=== PATIENT | male | born 1945 | race Caucasian/White ===

== ENCOUNTER 2018-04-18 15:12 | Inpatient (IN) | payer OTHER ==
[~2018-04-18] VITALS: Ht 177.8 cm; Wt 83.9 kg
[2018-04-18 15:12] VITALS: BP_SYST 119
[2018-04-18] MEDS ORDERED: NACL 0.9% 1,000 ML IV ONE (15:47)
[2018-04-18 17:04] LABS: HEMATOCRIT 43.6 % (36-54); HEMOGLOBIN 15.1 g/dL (14.0-18.0); MEAN CORPUSCULAR HEMOGLOBIN 33 pg (27-31); MEAN CORPUSCULAR HGB CONC 35 % (32-36); MEAN CORPUSCULAR VOLUME 97 fL (79.0-98.0); PLATELET COUNT (AUTO) 344 K/uL (130-430); RED BLOOD CELL COUNT(AUTO) 4.51 MIL/uL (4.2-6.2); RED CELL DISTRIBUTION WIDTH 12.7 % (9.0-15.0); WHITE BLOOD COUNT (AUTO) 15.1 K/uL (4.8-10.8)
[2018-04-18 17:07] LABS: ANION GAP 9 (5-15); CALCIUM 10.1 mg/dL (8.4-11.0); CHLORIDE 94 mmol/L (98-107); GLUCOSE 116 mg/dL (70-99); SODIUM SERUM 134 mmol/L (136-145); UREA NITROGEN, BLOOD 33 mg/dL (8-21)
[2018-04-18 17:13] LABS: ALANINE AMINOTRANSFERASE 15 U/L (12-78); ALBUMIN 3.8 g/dL (3.4-4.8); ASPARTATE AMINOTRANSFERASE 17 U/L (10-37); LIPASE 224 U/L (73-393); TOTAL BILIRUBIN 0.6 mg/dL (0.0-1.0)
[2018-04-18] MEDS ORDERED: DOCU-144 PO (17:13)
[2018-04-18] MEDS ORDERED: ACET325T53 PO (17:13)
[2018-04-18] MEDS ORDERED: CAND8TAB PO (17:13)
[2018-04-18] MEDS ORDERED: CLOP300T2 PO (17:13)
[2018-04-18] MEDS ORDERED: NOR10 PO (17:13)
[2018-04-18] MEDS ORDERED: SENN8.6T19 PO (17:13)
[2018-04-18] MEDS ORDERED: FOLI-43 PO (17:13)
[2018-04-18] MEDS ORDERED: LACT1TAB21 PO (17:13)
[2018-04-18] MEDS ORDERED: NAPR-1174 PO (17:13)
[2018-04-18] MEDS ORDERED: TOPXL100 PO (17:13)
[2018-04-18] MEDS ORDERED: OXYC-580 PO (17:13)
[2018-04-18] MEDS ORDERED: THIA100T13 PO (17:13)
[2018-04-18 17:16] LABS: ATYPICAL LYMPHOCYTES % 0 % (0-0); BAND % (MANUAL) 1 % (0-6); BASOPHILS % (MANUAL) 0 % (0-2); EOSINOPHILS % (MANUAL) 0 % (0-7); LYMPHOCYTES % (MANUAL) 15 % (20-46); MONOCYTES % (MANUAL) 3 % (0-11)
[2018-04-18 18:14] LABS: BILIRUBIN,URINE 1+ (NEGATIVE); BLOOD, URINE NEGATIVE (NEGATIVE); CLARITY/URINE SL CLOUDY (CLEAR); COLOR,URINE YELLOW (YELLOW); GLUCOSE,URINE TRACE (NEGATIVE); KETONES,URINE 1+ (NEGATIVE); LEUKOCYTE ESTERASE ,URINE TRACE (NEGATIVE); NITRITE, URINE POSITIVE (NEGATIVE); PH,URINE 6.5 (5.0-8.0); PROTEIN URINE 1+ (NEGATIVE)
[2018-04-18 18:20] LABS: BACTERIA,URINE MODERATE /HPF (None Seen); RBC,URINE 0-3 /HPF (0-3); URINE AMORPHOUS URATE 1+ /HPF (None Seen)
[2018-04-18 18:41] VITALS: BP_SYST 125
[2018-04-18] MEDS ORDERED: LevALBUTEROL HCL 1.25 MG/0.5 ML *CONC.* VIAL.NEB (XOPENEX CONC.) INH PRN (19:45)
[2018-04-18] MEDS ORDERED: ONDANSETRON HCL 4 MG/2 ML VIAL IVP PRN (19:45)
[2018-04-18] MEDS ORDERED: ACETAMINOPHEN 325 MG TABLET PO PRN (19:45)
[2018-04-18 20:15] VITALS: BP_SYST 137
[2018-04-18] MEDS: cefTRIAXone 1 GM in D5W 50 ML IV SCH (20:28)
[2018-04-18] MEDS: AZITHROMYCIN 500 MG in NS 250 ML IV SCH (20:28)
[2018-04-18] MEDS: D5/0.45 NS 1,000 ML IV SCH (20:29)
[2018-04-18] MEDS: SENNOSIDES 8.6 MG TABLET PO SCH (20:29)
[2018-04-18] MEDS: LevALBUTEROL HCL 1.25 MG/0.5 ML *CONC.* VIAL.NEB (XOPENEX CONC.) INH SCH (23:06)
[2018-04-19 00:34] VITALS: BP_SYST 99
[2018-04-19] MEDS: D5/0.45 NS 1,000 ML IV SCH ×3 (04:38→21:35)
[2018-04-19 06:36] LABS: BASOPHILS % (AUTO) 0.2 % (0.0-2.0); EOSINOPHILS # (AUTO) 0.2 K/uL (0.0-0.4); EOSINOPHILS % (AUTO) 1.4 % (0.0-4.0); HEMATOCRIT 37.2 % (36-54); HEMOGLOBIN 12.7 g/dL (14.0-18.0); LYMPHOCYTES # (AUTO) 2.5 K/uL (1.0-5.5); LYMPHOCYTES % (AUTO) 19.8 % (20.5-51.5); MEAN CORPUSCULAR HEMOGLOBIN 33 pg (27-31); MEAN CORPUSCULAR HGB CONC 34 % (32-36); MEAN CORPUSCULAR VOLUME 97 fL (79.0-98.0); MONOCYTES # (AUTO) 0.7 K/uL (0.0-1.0); MONOCYTES % (AUTO) 5.9 % (1.7-9.3); NEUTROPHILS # (AUTO) 9.2 K/uL (1.8-7.7); NEUTROPHILS % (AUTO) 72.7 % (40.0-70.0); PLATELET COUNT (AUTO) 309 K/uL (130-430); RED BLOOD CELL COUNT(AUTO) 3.85 MIL/uL (4.2-6.2); RED CELL DISTRIBUTION WIDTH 12.8 % (9.0-15.0); WHITE BLOOD COUNT (AUTO) 12.6 K/uL (4.8-10.8)
[2018-04-19 06:48] LABS: ANION GAP 3 (5-15); CALCIUM 9.4 mg/dL (8.4-11.0); CHLORIDE 96 mmol/L (98-107); CREATININE 1.94 mg/dL (0.55-1.30); GLUCOSE 101 mg/dL (70-99); SODIUM SERUM 133 mmol/L (136-145); UREA NITROGEN, BLOOD 35 mg/dL (8-21)
[2018-04-19] MEDS: LevALBUTEROL HCL 1.25 MG/0.5 ML *CONC.* VIAL.NEB (XOPENEX CONC.) INH SCH ×3 (07:22→23:27)
[2018-04-19 08:03] VITALS: BP_SYST 108
[2018-04-19] MEDS: oxyCODONE HCL 5 MG TABLET PO PRN ×2 (08:38→18:10)
[2018-04-19] MEDS: FOLIC ACID 1 MG TABLET PO SCH (08:39)
[2018-04-19] MEDS: THIAMINE HCL 100 MG TABLET PO SCH (08:39)
[2018-04-19] MEDS: DOCUSATE SODIUM 100 MG CAPSULE PO SCH (08:39)
[2018-04-19] MEDS: CLOPIDOGREL BISULFATE 75 MG TABLET PO SCH (08:39)
[2018-04-19] MEDS: amLODIPine BESYLATE 10 MG TABLET PO SCH (08:41)
[2018-04-19] MEDS: LOSARTAN POTASSIUM 50 MG TABLET (COZAAR) PO SCH (08:41)
[2018-04-19] MEDS: METOPROLOL SUCCINATE 50 MG TAB.SR.24H (TOPROL XL) PO SCH (08:42)
[2018-04-19] MEDS: KETOROLAC TROMETHAMINE 15 MG VIAL IVP PRN (11:20)
[2018-04-19 12:15] VITALS: BP_SYST 92
[2018-04-19 16:25] VITALS: BP_SYST 94
[2018-04-19 20:48] VITALS: BP_SYST 110
[2018-04-19] MEDS: cefTRIAXone 1 GM in D5W 50 ML IV SCH (21:34)
[2018-04-19] MEDS: AZITHROMYCIN 500 MG in NS 250 ML IV SCH (21:34)
[2018-04-19] MEDS: SENNOSIDES 8.6 MG TABLET PO SCH (21:35)
[2018-04-19 23:50] LABS: URINE SODIUM, RANDOM 47 mmol/L (40-220)
[2018-04-20] MEDS: oxyCODONE HCL 5 MG TABLET PO PRN ×4 (00:11→23:07)
[2018-04-20 00:44] VITALS: BP_SYST 101
[2018-04-20 06:39] LABS: ALANINE AMINOTRANSFERASE 13 U/L (12-78); ALBUMIN 2.9 g/dL (3.4-4.8); ANION GAP 4 (5-15); ASPARTATE AMINOTRANSFERASE 16 U/L (10-37); CHLORIDE 95 mmol/L (98-107); CREATININE 1.57 mg/dL (0.55-1.30); GLUCOSE 104 mg/dL (70-99); SODIUM SERUM 131 mmol/L (136-145); TOTAL BILIRUBIN 0.3 mg/dL (0.0-1.0); UREA NITROGEN, BLOOD 28 mg/dL (8-21)
[2018-04-20 06:40] LABS: BASOPHILS # (AUTO) 0.1 K/uL (0.0-0.2); BASOPHILS % (AUTO) 0.8 % (0.0-2.0); EOSINOPHILS # (AUTO) 0.2 K/uL (0.0-0.4); EOSINOPHILS % (AUTO) 2.8 % (0.0-4.0); HEMATOCRIT 33.3 % (36-54); LYMPHOCYTES # (AUTO) 1.9 K/uL (1.0-5.5); LYMPHOCYTES % (AUTO) 25.1 % (20.5-51.5); MEAN CORPUSCULAR HEMOGLOBIN 35 pg (27-31); MEAN CORPUSCULAR HGB CONC 36 % (32-36); MEAN CORPUSCULAR VOLUME 96 fL (79.0-98.0); MONOCYTES # (AUTO) 0.4 K/uL (0.0-1.0); MONOCYTES % (AUTO) 5.8 % (1.7-9.3); NEUTROPHILS % (AUTO) 65.5 % (40.0-70.0); PLATELET COUNT (AUTO) 239 K/uL (130-430); RED BLOOD CELL COUNT(AUTO) 3.46 MIL/uL (4.2-6.2); RED CELL DISTRIBUTION WIDTH 12.8 % (9.0-15.0); WHITE BLOOD COUNT (AUTO) 7.6 K/uL (4.8-10.8)
[2018-04-20] MEDS: LevALBUTEROL HCL 1.25 MG/0.5 ML *CONC.* VIAL.NEB (XOPENEX CONC.) INH SCH ×3 (07:17→23:00)
[2018-04-20 08:00] VITALS: BP_SYST 120
[2018-04-20] MEDS: FOLIC ACID 1 MG TABLET PO SCH (08:29)
[2018-04-20] MEDS: THIAMINE HCL 100 MG TABLET PO SCH (08:29)
[2018-04-20] MEDS: CLOPIDOGREL BISULFATE 75 MG TABLET PO SCH (08:29)
[2018-04-20] MEDS: LOSARTAN POTASSIUM 50 MG TABLET (COZAAR) PO SCH (08:30)
[2018-04-20] MEDS: METOPROLOL SUCCINATE 50 MG TAB.SR.24H (TOPROL XL) PO SCH (08:31)
[2018-04-20] MEDS: amLODIPine BESYLATE 10 MG TABLET PO SCH (08:31)
[2018-04-20] MEDS: DOCUSATE SODIUM 100 MG CAPSULE PO SCH (08:31)
[2018-04-20] MEDS: KETOROLAC TROMETHAMINE 15 MG VIAL IVP PRN ×2 (11:04→20:11)
[2018-04-20] MEDS: D5/0.45 NS 1,000 ML IV SCH (11:04)
[2018-04-20 11:16] LABS: % FREE PSA 13.1 % (.); FREE PSA 0.42 ng/mL; PROSTATE SPECIFIC AG TOTAL 3.2 ng/mL (0.0-4.0)
[2018-04-20 13:13] VITALS: BP_SYST 116
[2018-04-20 16:22] VITALS: BP_SYST 103
[2018-04-20] MEDS: D5NS 1,000 ML IV SCH (16:29)
[2018-04-20 20:00] VITALS: BP_SYST 101
[2018-04-20] MEDS: SENNOSIDES 8.6 MG TABLET PO SCH (20:10)
[2018-04-20] MEDS: cefTRIAXone 1 GM in D5W 50 ML IV SCH (20:10)
[2018-04-20] MEDS: AZITHROMYCIN 500 MG in NS 250 ML IV SCH (21:03)
[2018-04-21 00:20] VITALS: BP_SYST 98
[2018-04-21] MEDS: D5NS 1,000 ML IV SCH ×2 (02:33→12:31)
[2018-04-21 06:13] LABS: ANION GAP 4 (5-15); C-REACTIVE PROTEIN QUANT 1.6 mg/dL (0-0.5); CALCIUM 8.7 mg/dL (8.4-11.0); CHLORIDE 101 mmol/L (98-107); CREATININE 1.11 mg/dL (0.55-1.30); GLUCOSE 100 mg/dL (70-99); POTASSIUM 4.5 mmol/L (3.5-5.1); SODIUM SERUM 134 mmol/L (136-145); UREA NITROGEN, BLOOD 17 mg/dL (8-21)
[2018-04-21 07:17] VITALS: BP_SYST 118
[2018-04-21] MEDS: LevALBUTEROL HCL 1.25 MG/0.5 ML *CONC.* VIAL.NEB (XOPENEX CONC.) INH SCH ×3 (07:17→23:00)
[2018-04-21 08:00] VITALS: BP_SYST 118
[2018-04-21] MEDS: oxyCODONE HCL 5 MG TABLET PO PRN ×3 (08:09→18:42)
[2018-04-21] MEDS: DOCUSATE SODIUM 100 MG CAPSULE PO SCH (08:09)
[2018-04-21] MEDS: METOPROLOL SUCCINATE 50 MG TAB.SR.24H (TOPROL XL) PO SCH (08:09)
[2018-04-21] MEDS: amLODIPine BESYLATE 10 MG TABLET PO SCH (08:10)
[2018-04-21] MEDS: THIAMINE HCL 100 MG TABLET PO SCH (08:10)
[2018-04-21] MEDS: FOLIC ACID 1 MG TABLET PO SCH (08:10)
[2018-04-21] MEDS: CLOPIDOGREL BISULFATE 75 MG TABLET PO SCH (08:10)
[2018-04-21] MEDS: LOSARTAN POTASSIUM 50 MG TABLET (COZAAR) PO SCH (08:27)
[2018-04-21 12:15] VITALS: BP_SYST 104
[2018-04-21] MEDS: KETOROLAC TROMETHAMINE 15 MG VIAL IVP PRN (15:17)
[2018-04-21 16:49] VITALS: BP_SYST 130
[2018-04-21] MEDS: cefTRIAXone 1 GM in D5W 50 ML IV SCH (19:52)
[2018-04-21 20:00] VITALS: BP_SYST 123
[2018-04-21] MEDS: AZITHROMYCIN 500 MG in NS 250 ML IV SCH (20:34)
[2018-04-21] MEDS: SENNOSIDES 8.6 MG TABLET PO SCH (20:34)
[2018-04-22] MEDS: D5NS 1,000 ML IV SCH (00:12)
[2018-04-22 01:20] VITALS: BP_SYST 123
[2018-04-22] MEDS: oxyCODONE HCL 5 MG TABLET PO PRN ×3 (01:34→22:21)
[2018-04-22 08:00] VITALS: BP_SYST 129
[2018-04-22] MEDS: LevALBUTEROL HCL 1.25 MG/0.5 ML *CONC.* VIAL.NEB (XOPENEX CONC.) INH SCH ×3 (08:03→23:41)
[2018-04-22] MEDS: KETOROLAC TROMETHAMINE 15 MG VIAL IVP PRN ×2 (08:08→15:56)
[2018-04-22] MEDS: THIAMINE HCL 100 MG TABLET PO SCH (08:10)
[2018-04-22] MEDS: amLODIPine BESYLATE 10 MG TABLET PO SCH (08:11)
[2018-04-22] MEDS: DOCUSATE SODIUM 100 MG CAPSULE PO SCH (08:11)
[2018-04-22] MEDS: FOLIC ACID 1 MG TABLET PO SCH (08:12)
[2018-04-22] MEDS: CLOPIDOGREL BISULFATE 75 MG TABLET PO SCH (08:12)
[2018-04-22] MEDS: METOPROLOL SUCCINATE 50 MG TAB.SR.24H (TOPROL XL) PO SCH (08:12)
[2018-04-22 12:25] VITALS: BP_SYST 132
[2018-04-22] MEDS ORDERED: IOHEXOL 100 ML IV ONE (13:27)
[2018-04-22 16:25] VITALS: BP_SYST 111
[2018-04-22] MEDS: cefTRIAXone 1 GM in D5W 50 ML IV SCH (19:30)
[2018-04-22 20:00] VITALS: BP_SYST 135
[2018-04-22] MEDS: AZITHROMYCIN 500 MG in NS 250 ML IV SCH (20:19)
[2018-04-22] MEDS: SENNOSIDES 8.6 MG TABLET PO SCH (20:24)
[2018-04-23 00:32] VITALS: BP_SYST 147
[2018-04-23] MEDS: KETOROLAC TROMETHAMINE 15 MG VIAL IVP PRN ×2 (04:43→13:43)
[2018-04-23 06:47] LABS: BASOPHILS % (AUTO) 0.6 % (0.0-2.0); EOSINOPHILS # (AUTO) 0.2 K/uL (0.0-0.4); EOSINOPHILS % (AUTO) 2.8 % (0.0-4.0); HEMATOCRIT 34.3 % (36-54); LYMPHOCYTES # (AUTO) 1.3 K/uL (1.0-5.5); LYMPHOCYTES % (AUTO) 18.8 % (20.5-51.5); MEAN CORPUSCULAR HEMOGLOBIN 34 pg (27-31); MEAN CORPUSCULAR HGB CONC 35 % (32-36); MEAN CORPUSCULAR VOLUME 97 fL (79.0-98.0); MONOCYTES # (AUTO) 0.5 K/uL (0.0-1.0); MONOCYTES % (AUTO) 6.8 % (1.7-9.3); NEUTROPHILS # (AUTO) 4.9 K/uL (1.8-7.7); PLATELET COUNT (AUTO) 262 K/uL (130-430); RED BLOOD CELL COUNT(AUTO) 3.55 MIL/uL (4.2-6.2); RED CELL DISTRIBUTION WIDTH 12.3 % (9.0-15.0); WHITE BLOOD COUNT (AUTO) 6.9 K/uL (4.8-10.8)
[2018-04-23 07:24] LABS: ALANINE AMINOTRANSFERASE 13 U/L (12-78); ALBUMIN 2.7 g/dL (3.4-4.8); ANION GAP 8 (5-15); ASPARTATE AMINOTRANSFERASE 14 U/L (10-37); CHLORIDE 102 mmol/L (98-107); CREATININE 0.91 mg/dL (0.55-1.30); GLUCOSE 86 mg/dL (70-99); POTASSIUM 4.4 mmol/L (3.5-5.1); SODIUM SERUM 137 mmol/L (136-145); TOTAL BILIRUBIN 0.4 mg/dL (0.0-1.0); UREA NITROGEN, BLOOD 7 mg/dL (8-21)
[2018-04-23] MEDS: LevALBUTEROL HCL 1.25 MG/0.5 ML *CONC.* VIAL.NEB (XOPENEX CONC.) INH SCH ×3 (07:50→23:09)
[2018-04-23 08:00] VITALS: BP_SYST 129
[2018-04-23] MEDS: oxyCODONE HCL 5 MG TABLET PO PRN ×2 (09:42→20:05)
[2018-04-23] MEDS ORDERED: GADOPENTETATE DIMEGLUMINE 15 ML VIAL IV ONE (10:09)
[2018-04-23] MEDS: DOCUSATE SODIUM 100 MG CAPSULE PO SCH (11:54)
[2018-04-23] MEDS: FOLIC ACID 1 MG TABLET PO SCH (11:54)
[2018-04-23] MEDS: CLOPIDOGREL BISULFATE 75 MG TABLET PO SCH (11:54)
[2018-04-23] MEDS: THIAMINE HCL 100 MG TABLET PO SCH (11:54)
[2018-04-23] MEDS: amLODIPine BESYLATE 10 MG TABLET PO SCH (11:54)
[2018-04-23] MEDS: METOPROLOL SUCCINATE 50 MG TAB.SR.24H (TOPROL XL) PO SCH (11:55)
[2018-04-23] MEDS: BISACODYL 10 MG/SUPPOSITORY RC PRN (11:55)
[2018-04-23 11:57] VITALS: BP_SYST 126
[2018-04-23 12:25] VITALS: BP_SYST 129
[2018-04-23 16:25] VITALS: BP_SYST 134
[2018-04-23] MEDS: cefTRIAXone 1 GM in D5W 50 ML IV SCH (19:23)
[2018-04-23 20:00] VITALS: BP_SYST 125
[2018-04-23] MEDS: SENNOSIDES 8.6 MG TABLET PO SCH (20:04)
[2018-04-24 00:30] VITALS: BP_SYST 129
[2018-04-24] MEDS: oxyCODONE HCL 5 MG TABLET PO PRN ×3 (03:29→17:26)
[2018-04-24] MEDS: LevALBUTEROL HCL 1.25 MG/0.5 ML *CONC.* VIAL.NEB (XOPENEX CONC.) INH SCH ×3 (07:09→22:45)
[2018-04-24 07:10] VITALS: BP_SYST 129
[2018-04-24 08:00] VITALS: BP_SYST 147
[2018-04-24] MEDS: FOLIC ACID 1 MG TABLET PO SCH (08:50)
[2018-04-24] MEDS: THIAMINE HCL 100 MG TABLET PO SCH (08:50)
[2018-04-24] MEDS: amLODIPine BESYLATE 10 MG TABLET PO SCH (08:51)
[2018-04-24] MEDS: METOPROLOL SUCCINATE 50 MG TAB.SR.24H (TOPROL XL) PO SCH (08:51)
[2018-04-24] MEDS: CLOPIDOGREL BISULFATE 75 MG TABLET PO SCH (08:51)
[2018-04-24] MEDS: DOCUSATE SODIUM 100 MG CAPSULE PO SCH (08:51)
[2018-04-24 10:06] LABS: PROTHROMBIN TIME 10.4 SECS (9.5-12.5)
[2018-04-24] MEDS ORDERED: LIDOCAINE 1%, 20 ML MDV 0 ML ONE (10:44)
[2018-04-24] MEDS ORDERED: LORazepam 2 MG/ML VIAL IM ONE (10:45)
[2018-04-24 12:27] VITALS: BP_SYST 126
[2018-04-24] MEDS ORDERED: MORPHINE 4 MG/ML INJ. SYRINGE IVP ONE (14:45)
[2018-04-24 16:25] VITALS: BP_SYST 122
[2018-04-24] MEDS: cefTRIAXone 1 GM in D5W 50 ML IV SCH (21:19)
[2018-04-24] MEDS: SENNOSIDES 8.6 MG TABLET PO SCH (21:19)
[2018-04-25 00:52] VITALS: BP_SYST 115
[2018-04-25] MEDS: oxyCODONE HCL 5 MG TABLET PO PRN ×4 (06:04→20:09)
[2018-04-25] MEDS: LevALBUTEROL HCL 1.25 MG/0.5 ML *CONC.* VIAL.NEB (XOPENEX CONC.) INH SCH ×2 (07:39→15:36)
[2018-04-25] MEDS ORDERED: MORPHINE 4 MG/ML INJ. SYRINGE IVP ONE (08:00)
[2018-04-25 08:15] VITALS: BP_SYST 127
[2018-04-25] MEDS ORDERED: LIDOCAINE 1%, 20 ML MDV 20 ML ONE (08:42)
[2018-04-25] MEDS: FOLIC ACID 1 MG TABLET PO SCH (09:52)
[2018-04-25] MEDS: DOCUSATE SODIUM 100 MG CAPSULE PO SCH (09:52)
[2018-04-25] MEDS: THIAMINE HCL 100 MG TABLET PO SCH (09:52)
[2018-04-25] MEDS: METOPROLOL SUCCINATE 50 MG TAB.SR.24H (TOPROL XL) PO SCH (09:53)
[2018-04-25] MEDS: CLOPIDOGREL BISULFATE 75 MG TABLET PO SCH (09:53)
[2018-04-25] MEDS: amLODIPine BESYLATE 10 MG TABLET PO SCH (09:53)
[2018-04-25 14:28] VITALS: BP_SYST 119
[2018-04-25 16:02] VITALS: BP_SYST 116
[2018-04-25 20:00] VITALS: BP_SYST 110
[2018-04-25] MEDS: SENNOSIDES 8.6 MG TABLET PO SCH (20:06)
[2018-04-26] MEDS: oxyCODONE HCL 5 MG TABLET PO PRN ×5 (00:27→18:52)
[2018-04-26] MEDS: LevALBUTEROL HCL 1.25 MG/0.5 ML *CONC.* VIAL.NEB (XOPENEX CONC.) INH SCH ×3 (00:40→15:00)
[2018-04-26 00:41] VITALS: BP_SYST 108
[2018-04-26 05:31] VITALS: BP_SYST 119
[2018-04-26 08:30] VITALS: BP_SYST 103
[2018-04-26] MEDS: DOCUSATE SODIUM 100 MG CAPSULE PO SCH (09:21)
[2018-04-26] MEDS: FOLIC ACID 1 MG TABLET PO SCH (09:21)
[2018-04-26] MEDS: THIAMINE HCL 100 MG TABLET PO SCH (09:21)
[2018-04-26] MEDS: amLODIPine BESYLATE 10 MG TABLET PO SCH (09:22)
[2018-04-26] MEDS: CLOPIDOGREL BISULFATE 75 MG TABLET PO SCH (09:22)
[2018-04-26] MEDS: METOPROLOL SUCCINATE 50 MG TAB.SR.24H (TOPROL XL) PO SCH (09:23)
[2018-04-26 11:31] VITALS: BP_SYST 97
[2018-04-26] MEDS: BISACODYL 10 MG/SUPPOSITORY RC PRN (14:36)
[2018-04-26 15:58] VITALS: BP_SYST 103
[2018-04-26 19:53] VITALS: BP_SYST 107
[2018-05-28] MEDS ORDERED: DEC4 PO (17:34)
[2018-05-28] MEDS ORDERED: NA P133E41 RC (17:34)
[2018-05-28] MEDS ORDERED: MOM PO (17:34)
[2018-05-28] MEDS ORDERED: PRO40 PO (17:34)
[2018-05-28] MEDS ORDERED: THIA100T13 PO (17:34)
[2018-05-28] MEDS ORDERED: BISA10SU61 RC (17:34)
[2018-05-28] MEDS ORDERED: SENN-169 PO (17:34)
[2018-05-28] MEDS ORDERED: OXYC-580 PO (17:34)
[2018-05-28] MEDS ORDERED: ONDA4TAB5 PO (17:34)
== END 2018-04-26 20:35 | DRG 193 ==
LOC: SED 15:12 → SMU 17:32
PROVIDERS: ADMIT Family Medicine; ATTEND Family Medicine
PROC: 0JB73ZX Excision of Back Subcutaneous Tissue and Fascia, Percutaneous Approach, Diagnostic (ICD-10-PCS; principal; 2018-04-25)
DX: J18.1 Lobar pneumonia, unspecified organism (principal); N17.0 Acute kidney failure with tubular necrosis; N39.0 Urinary tract infection, site not specified; M48.56XA Collapsed vertebra, not elsewhere classified, lumbar region, initial encounter for fracture; E87.1 Hypo-osmolality and hyponatremia; E86.0 Dehydration; R91.8 Other nonspecific abnormal finding of lung field; G89.29 Other chronic pain; K56.41 Fecal impaction; I12.9 Hypertensive chronic kidney disease with stage 1 through stage 4 chronic kidney disease, or unspecified chronic kidney disease; N18.9 Chronic kidney disease, unspecified; K57.90 Diverticulosis of intestine, part unspecified, without perforation or abscess without bleeding; I25.10 Atherosclerotic heart disease of native coronary artery without angina pectoris; Z87.891 Personal history of nicotine dependence; Z95.5 Presence of coronary angioplasty implant and graft; Z88.6 Allergy status to analgesic agent; Z79.899 Other long term (current) drug therapy; Z79.02 Long term (current) use of antithrombotics/antiplatelets
CPT/HCPCS: 36415; 71260-TC; 72158; 77012; 80048; 80053; 81000-TC; 82570-TC; 83690-TC; 84302-TC; 85007; 85025; 85027; 85610-TC; 85730-TC; 86140; 87081; 87086; 87186-TC; 88305; 94640; 94760; 96360; 97110-GP; 97530-GP; 97535-GP; 99285; A9579; G0103; J0456; J0696; J1885; J2001; J2060; J2270; J7030; J7042; J7050; J7060; J7612; Q9967